=== PATIENT | male | born 1980 | race Caucasian/White ===

== ENCOUNTER 2021-01-12 08:01 | Observation (INO) | payer OTHER ==
[2021-01-12] MEDS ORDERED: KETOROLAC 15 MG/ML VIAL IM STA (08:38)
[2021-01-12] MEDS ORDERED: HYDROmorphone 1 MG/ML CARPUJECT IM STA (08:38)
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
[2021-01-12] MEDS ORDERED: LIDOCAINE 1%-EPI 1:100000 20 ML MDV SUBQ STA (09:19)
[2021-01-12] MEDS ORDERED: HYDROmorphone 1 MG/ML CARPUJECT IVP STA ×2 (09:48→09:52)
[2021-01-12 09:56] LABS: BASOPHILS % (AUTO) 0.5 %; EOSINOPHILS % (AUTO) 0.3 %; HCT - HEMATOCRIT 41.8 % (42.0-52.0); LYMPHOCYTES # (AUTO) 0.9 10^3/uL (1.5-3.5); LYMPHOCYTES % (AUTO) 15.3 %; MEAN CORPUSCULAR HEMOGLOBIN 32.8 pg (27.0-31.0); MEAN CORPUSCULAR HGB CONC 33.5 g/dL (32.0-36.0); MEAN CORPUSCULAR VOLUME 97.9 fL (80.0-94.0); MONOCYTES # (AUTO) 0.6 10^3/uL (0.0-1.0); MONOCYTES % (AUTO) 9.7 %; NEUTROPHILS # (AUTO) 4.5 10^3/uL (1.5-6.6); PLT - PLATELET COUNT 253 10^3/uL (130-450); RED BLOOD COUNT 4.27 10^6/uL (4.70-6.10); RED CELL DISTRIBUTION WIDTH 12.4 % (12.0-15.0)
[2021-01-12 10:08] LABS: ALBUMIN/GLOBULIN RATIO 1.8 (1.0-2.2); BILIRUBIN,TOTAL 1.2 mg/dL (0.2-1.0); CALCIUM 9.5 mg/dL (8.5-10.3); CREATININE 0.8 mg/dL (0.6-1.2); POTASSIUM 4.4 mmol/L (3.5-5.0); TOTAL PROTEIN 7.8 g/dL (6.7-8.2)
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
--- NOTE | 2021-01-12 10:37 | XRAY Report ---
PROCEDURE: Chest for Line Placement INDICATIONS: p chest tube TECHNIQUE: One view of the chest was acquired. COMPARISON: 01/12/2021 at 0 152 hours FINDINGS: Surgical changes and devices: Interval placement of a right chest tube. Lungs and pleura: No residual identifiable right pneumothorax seen. Lungs are clear. Mediastinum: Mediastinal contours appear normal. Heart size is normal. Bones and chest wall: No suspicious bony lesions. Right clavicular fracture. Overlying soft tissues appear unremarkable. IMPRESSION: 1. Status post right chest tube placement with resolution of pneumothorax. 2. Right clavicular fracture. Reviewed by: Marino Preciado MD on 01/12/2021 10:35 AM PDT Approved by: Marino Preciado MD on 01/12/2021 10:35 AM PDT Station ID: [id number]
[2021-01-12 10:47] LABS: INR 0.9 (0.8-1.2); PT - PROTHROMBIN TIME 10.5 secs (9.9-12.6)
[2021-01-12] MEDS ORDERED: ONDANSETRON ODT 4 MG TABLET TL PRN (10:54)
[2021-01-12] MEDS ORDERED: ZOLPIDEM 5 MG TABLET PO PRN (10:54)
[2021-01-12] MEDS ORDERED: SODIUM CHLORIDE FLUSH 0.9% 10 ML SYRINGE IVP PRN (10:54)
[2021-01-12 11:05] LABS: B. PARAPERTUSSIS- RESP PCR PAN NOT DETECTED; B. PERTUSSIS- RESP PCR PANEL NOT DETECTED; C. PNEUMONIAE- RESP PCR PANEL NOT DETECTED; CORONAVIRUS 229E-RESP PCR NOT DETECTED; CORONAVIRUS HKU1-RESP PCR NOT DETECTED; CORONAVIRUS NL63-RESP PCR NOT DETECTED; CORONAVIRUS OC43-RESP PCR NOT DETECTED; HUMAN METAPNEUMOVIRUS NOT DETECTED; INFLUENZA A- RESP PCR PANEL NOT DETECTED; INFLUENZA B - RESP PCR PANEL NOT DETECTED; M. PNEUMONIAE- RESP PCR PANEL NOT DETECTED; PARAINFLUENZA VIRUS 1 NOT DETECTED; PARAINFLUENZA VIRUS 2 NOT DETECTED; PARAINFLUENZA VIRUS 3 NOT DETECTED; PARAINFLUENZA VIRUS 4 NOT DETECTED; RHINOVIRUS/ENTEROVIRUS NOT DETECTED; RSV- RESP PCR PANEL NOT DETECTED; SARS-CoV-2 -RESP PCR PANEL NOT DETECTED
[2021-01-12] MEDS: SODIUM CHLORIDE FLUSH 0.9% 10 ML SYRINGE IVP SCH ×2 (11:59→16:54)
[2021-01-12] MEDS: HYDROmorphone 0.5 MG/0.5 ML SYRINGE IVP PRN ×5 (11:59→22:09)
[2021-01-12] MEDS: IBUPROFEN 400 MG TABLET PO PRN ×3 (12:01→19:49)
[2021-01-12] MEDS: D5.45NS W/20 MEQ KCL 1,000 ML IV SCH ×2 (12:04→21:22)
--- NOTE | 2021-01-12 13:35 | PHARMACY PROGRESS NOTE ---
- Best Possible Medication History Admit Date and Time: 01/12/21 1054 Processed by: Nursing Medication History completed: Yes Patient Interview: Completed (MED REC COMPLETED BY NURSING) As the person ultimately responsible for medication therapy, providers are able to order a medication from an existing home medication list in [facility] via the "Reconcile Routine" prior to Confirmation of that medication by other sales support worker. Such practice is discouraged except when the physician, in their clinical judgment, deems that a medical need exists for a medication without regard to previous use.
[2021-01-12] MEDS: oxyCODONE 5 MG TABLET PO PRN ×3 (13:46→22:52)
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
[2021-01-13] MEDS: IBUPROFEN 400 MG TABLET PO PRN ×4 (01:17→21:46)
[2021-01-13] MEDS: HYDROmorphone 0.5 MG/0.5 ML SYRINGE IVP PRN ×3 (01:17→12:22)
[2021-01-13] MEDS: SODIUM CHLORIDE FLUSH 0.9% 10 ML SYRINGE IVP SCH ×3 (01:29→15:40)
[2021-01-13] MEDS: ACETAMINOPHEN 325 MG TABLET PO PRN ×4 (03:27→17:48)
[2021-01-13] MEDS: oxyCODONE 5 MG TABLET PO PRN ×4 (03:27→17:48)
[2021-01-13] MEDS: D5.45NS W/20 MEQ KCL 1,000 ML IV SCH ×2 (05:54→15:40)
--- NOTE | 2021-01-13 09:28 | XRAY Report ---
PROCEDURE: Chest 1 View X-Ray INDICATIONS: follow up pneumothorax TECHNIQUE: One view of the chest was acquired. COMPARISON: Chest, ribs, and right clavicle radiographs dated 01/12/2021 FINDINGS: Surgical changes and devices: Right-sided chest tube is seen in stable position. Stable metallic star dware of the left clavicle. Lungs and pleura: Trace residual pneumothorax at the right lung apex, which has significantly decreas ed in size when compared to the rib radiographs from the day prior. The lungs are otherwise clear. No pleural effusion. Mediastinum: Mediastinal contours appear normal. Heart size is normal. Bones and chest wall: Comminuted fractures of the midshaft of the right clavicle is redemonstrated wi th overriding of fracture fragments. There is a minimally displaced fracture of the lateral right fif th rib. IMPRESSION: 1. Stable right-sided chest tube. Trace residual right apical pneumothorax. 2. Comminuted displaced fracture of the midshaft of the right clavicle. 3. Minimally displaced right lateral fifth rib fracture. Reviewed by: Ricky Jaimes MD on 01/13/2021 9:26 AM PDT Approved by: Ricky Jaimes MD on 01/13/2021 9:26 AM PDT Station ID: [id number]
[2021-01-13] MEDS: polyethylene glycoL 3350 17 GM PACKET PO SCH (10:21)
[2021-01-13] MEDS: ADDERALL PO SCH (10:21)
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
[2021-01-14] MEDS: ACETAMINOPHEN 325 MG TABLET PO PRN ×2 (00:40→08:29)
[2021-01-14] MEDS: oxyCODONE 5 MG TABLET PO PRN ×2 (00:40→08:29)
[2021-01-14] MEDS: D5.45NS W/20 MEQ KCL 1,000 ML IV SCH ×2 (00:43→10:50)
[2021-01-14] MEDS: SODIUM CHLORIDE FLUSH 0.9% 10 ML SYRINGE IVP SCH ×2 (01:37→10:11)
[2021-01-14] MEDS: polyethylene glycoL 3350 17 GM PACKET PO SCH (08:28)
[2021-01-14] MEDS: ADDERALL PO SCH (08:37)
[2021-01-14] MEDS: IBUPROFEN 400 MG TABLET PO PRN (10:02)
[2021-01-14 12:07] VITALS: BP 141/85
--- NOTE | 2021-01-14 12:14 | Discharge Plan ---
Discharge Plan Problem Reviewed?: Yes Disposition: Home, Self Care Condition: Good Prescriptions: oxyCODONE/ACET 5/325 [Percocet 5 mg/325 mg] 1 each PO Q4-6H PRN #30 tablet PRN Reason: Pain Diet: Regular Activity Restrictions: Activity as Tolerated Shower Restrictions: No Driving Restrictions: No Plan of Treatment: Ok to shower and get the dressing wet Remove the dressing in 3 to 5 days and change as needed Assessment: Doing well after treatment pneumothorax Additional Instructions or Follow Up instructions: Go to emergency department if you develop recurrent shortness of breath/ chest pressure No Smoking: If you smoke, Please STOP! Call for help.
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
--- NOTE | 2021-01-14 12:44 | XRAY Report ---
PROCEDURE: Chest 1 View X-Ray INDICATIONS: follow up ptx TECHNIQUE: One view of the chest was acquired. COMPARISON: Chest radiograph 01/13/2021 FINDINGS: Surgical changes and devices: Right-sided chest tube is removed. Stable fixation hardware at the lef t clavicle. Lungs and pleura: The lungs are clear. No residual right-sided pneumothorax is seen. No pleural effus ion. Mediastinum: Mediastinal contours appear normal. Heart size is normal. Bones and chest wall: Comminuted displaced right clavicular fracture redemonstrated. Minimally displ aced rib fracture as poorly visualized. No suspicious bony lesions. Overlying soft tissues appear un remarkable. IMPRESSION: Interval removal of right-sided chest tube. No residual pneumothorax. Reviewed by: Ricky Jaimes MD on 01/14/2021 12:42 PM PDT Approved by: Ricky Jaimes MD on 01/14/2021 12:42 PM PDT Station ID: [id number]
== END 2021-01-14 12:45 | disposition home or self-care (01) ==
LOC: ED 08:01 → MS2 10:54
PROVIDERS: ADMIT Surgery; ATTEND Surgery
DX: S27.0XXA Traumatic pneumothorax, initial encounter (principal); S42.021A Displaced fracture of shaft of right clavicle, initial encounter for closed fracture; S22.31XA Fracture of one rib, right side, initial encounter for closed fracture; V18.0XXA Pedal cycle driver injured in noncollision transport accident in nontraffic accident, initial encounter; Y93.55 Activity, bike riding; Y99.8 Other external cause status; F90.9 Attention-deficit hyperactivity disorder, unspecified type; Z20.822 Contact with and (suspected) exposure to COVID-19; Z79.899 Other long term (current) drug therapy
CPT/HCPCS: 0202U; 32551; 36415; 71045; 71101; 73000; 80053; 83690; 85025; 85610; 96365; 96366; 96372; 96375; 96376; 99284; 99285; A9270; G0378; J1170